=== PATIENT | female | born 1990 | race Caucasian/White ===

== ENCOUNTER 2021-07-07 20:13 | Emergency (ER) | payer MEDICARE, BC, SELFPAY ==
[2021-07-07 20:22] VITALS: BP 124/76; PULSE 97; RESP 18; TEMP 37.1; O2SAT 97; BMI 21.9
[2021-07-07 20:45] VITALS: BP 124/76; PULSE 97; RESP 18; TEMP 37.1; O2SAT 97; BMI 22.5
--- NOTE | 2021-07-07 21:00 | HMH.EDUTC ---
[facility] [place] Disposition Clinical Impression: Dental abscess Disposition: Home, Self-Care Condition on Discharge: Good Instructions: Tooth Abscess, Clindamycin Additional Instructions: *Monitor Temp, Over the counter Motrin or Tylenol as directed/as needed Tylenol every 4 hours and Motrin every 6 hours (as long as your family doctor has told you that you can take it) for fever or pain. and straight to ER if unable to lower temp less than 101.0 after medication given *Warm salt water gargles may help to soothe the throat Take medication as prescribed Follow up with Dentist as soon as possible Return if needed Straight to ER if any life threatening symptoms Follow up IMMEDIATELY for new or worsening symptoms or no Noticeable improvement over the next 48-72 hours. 911 for difficulty breathing or swallowing Prescriptions: clindamycin HCL [Clindamycin HCl] 300 mg PO TID 7 Days #21 cap Transmission Status: Pending to [facility]/pharmacy #[id number] Referrals: Vidal Guillermo [Primary Care Provider] - As needed Time of Disposition: 21:12 Medical Decision Making - Axel Inquiry Pt receiving controlled substance: No Axel was queried for this patient: No Vital Signs: 07/07/21 20:22 07/07/21 20:45 Temperature 98.7 F 98.7 F Temperature Source Oral Oral Pulse Rate [Right] 97 H 97 H Respiratory Rate 18 18 Blood Pressure [Right Arm] 124/76 124/76 Blood Pressure Mean [Right Arm] 92 92 02 Sat by Pulse Oximetry 97 97 Oxygen Delivery Method Room Air Medical Decision Narrative: Medication discussed with pharmacy to make sure that medication is safe for use during and pharmacy advised Clindamycin is safe for use during due to patient allergic to PCN and unsure if she can take Cephalosporins [facility] [place] HPI - General Stated complaint: poss abscess teeth/poss ear infection Time Seen by Provider: 07/07/21 21:01 Mode of Arrival: Ambulatory Source of Information: Patient Limitations: No Limitations Description of Symptoms (Recalled from Triage Doc. by RN): pt c/o upper tooth abcess and bilateral ear pain x 1 week HEENT Symptoms (Recalled from RN notes): Yes (toothache, ear pain) Resp Symptoms (Recalled from RN notes): No Skin Symptoms (Recalled from RN notes): No MS Symptoms (Recalled from RN notes): No Functional Status (Recalled from RN notes): n/a - History of Present Illness Provider Complaint: Pt states that she has several broken and decaying teeth state that she has been having some swelling in her gums and unable to get into see a dentist and noticed she was having some swelling today so she came in to see if she can get some antibiotics Statse that she is 5 1/2mth OB - Related Data Previous Rx's Medication Instructions Recorded azithromycin 250 mg tablet 250 mg PO .COMPLEX 5 Days #6 tab 08/29/18 clindamycin HCL [Clindamycin HCl] 300 mg PO TID 7 Days #21 cap 07/07/21 Allergies Allergy/AdvReac Type Severity Reaction Status Date / Time Penicillins Allergy Intermediate Verified 08/29/18 18:57 - Worker's Comp Is this a Worker's Comp case?: No [facility] History - Hepatitis A Screen Drug use history?: No High risk sexual behaviors?: No History of sexually transmitted infection?: No Currently employed?: No Childcare worker?: No Do you have indoor plumbing?: Yes Do you have electricity?: Yes Attestation statement:: This patient has been screened for Hepatitis A risk factors. I have reviewed the patient's past medical history: Yes Medical History: Reports:: Anxiety Other Surgeries: Yes: No Previous Surgery - Social History Smoking Status: Current every day smoker Alcohol Intake: never Alcohol Intake Frequency:: 0-2 drinks per day Substance Use Type: denies use Housing: house Household Members: family - Psychiatric History Pschychiatric History:: Reports:: Anxiety Family Hx:: No significant family history ROS Obtained: Yes All systems reviewed & no additional complaints, Yes Systems reviewed as
[2021-07-07 21:14] VITALS: BP 124/76; PULSE 97; RESP 18; TEMP 37.1; O2SAT 97
== END 2021-07-07 21:15 | disposition home or self-care (01) ==
PROVIDERS: Emergency Provider Nurse Practitioner; PCP Pediatrics
DX: K04.7 Periapical abscess without sinus (principal); F17.200 Nicotine dependence, unspecified, uncomplicated
CPT/HCPCS: G0463; 99202

== ENCOUNTER 2022-02-06 11:10 | Emergency (ER) | payer MEDICARE, BC, SELFPAY ==
[2022-02-06 11:55] VITALS: BP 128/89; PULSE 87; RESP 18; TEMP 37; O2SAT 98; BMI 20.7
--- NOTE | 2022-02-06 12:16 | HMH.EDUTC ---
[facility] [place] Disposition Clinical Impression: Dental abscess Otitis media Qualifiers: Otitis media type: unspecified Laterality: bilateral Qualified Code(s): H66.93 - Otitis media, unspecified, bilateral Disposition: Home, Self-Care Condition on Discharge: Good Instructions: Tooth Abscess, Middle Ear Infection, Cephalexin Additional Instructions: Take medication as prescribed Call today and make appointment with Dentist may take you several weeks to get into see the Doctor Return if needed Straight to ER if any life threatening symptoms FOllow up with Family Doctor if no improvement or any worsening of symptoms Prescriptions: cephALEXin [cephALEXin 500mg capsule*] 500 mg PO Q6H 10 Days #40 cap Transmission Status: Pending to [facility]/pharmacy #[id number] Referrals: Payton Vega APRN [Primary Care Provider] - As needed Time of Disposition: 12:32 Medical Decision Making - Axel Inquiry Pt receiving controlled substance: No Axel was queried for this patient: No Vital Signs: 02/06/22 11:55 Temperature 98.6 F Temperature Source Oral Pulse Rate [Right Brachial] 87 Respiratory Rate 18 Blood Pressure [Right Arm] 128/89 Blood Pressure Mean [Right Arm] 102 Blood Pressure Source [Right Arm] Automatic Cuff Blood Pressure Position [Right Arm] Sitting 02 Sat by Pulse Oximetry 98 Oxygen Delivery Method Room Air - Lab Data Lab results reviewed: Yes: I reviewed the patient's lab results. Medical Decision Narrative: Patient states that she was allergic to PCN as a child but has taken cephalexin in the past without complications or reactions [facility] [place] HPI - General Stated complaint: bilateral ear pain, sore throat Time Seen by Provider: 02/06/22 12:16 Mode of Arrival: Ambulatory Source of Information: Patient Limitations: No Limitations Description of Symptoms (Recalled from Triage Doc. by RN): PATIENT C/O BILATERAL EAR AND BOTTOM DENTAL PAIN X 2 WEEKS HEENT Symptoms (Recalled from RN notes): Yes Resp Symptoms (Recalled from RN notes): No Skin Symptoms (Recalled from RN notes): No MS Symptoms (Recalled from RN notes): No Functional Status (Recalled from RN notes): WNL - History of Present Illness Provider Complaint: Patient state that for the last couple of weeks she has been having bilateral ear pain and pain in her bottom teeth State that she has several broken and decaying teeth on the bottom and they are causing her some pain State that today she felt like her lymph nodes was swollen so she came in to get checked - Related Data Previous Rx's Medication Instructions Recorded azithromycin 250 mg tablet 250 mg PO .COMPLEX 5 Days #6 tab 08/29/18 clindamycin HCL [Clindamycin HCl] 300 mg PO TID 7 Days #21 cap 07/07/21 cephALEXin [cephALEXin 500mg 500 mg PO Q6H 10 Days #40 cap 02/06/22 capsule*] Allergies Allergy/AdvReac Type Severity Reaction Status Date / Time Penicillins Allergy Intermediate Verified 08/29/18 18:57 - Worker's Comp Is this a Worker's Comp case?: No [facility] History - Hepatitis A Screen Attestation statement:: This patient has been screened for Hepatitis A risk factors. I have reviewed the patient's past medical history: Yes Medical History: Reports:: Anxiety Other Surgeries: Yes: No Previous Surgery - Social History Smoking Status: Current every day smoker Alcohol Intake: never Alcohol Intake Frequency:: 0-2 drinks per day Substance Use Type: denies use Housing: house Household Members: family - Psychiatric History Pschychiatric History:: Reports:: Anxiety Family Hx:: No significant family history ROS Obtained: Yes All systems reviewed & no additional complaints, Yes Systems reviewed as appropriate & no additional complaints - Constitutional Constitutional: Reports system reviewed and no additional complaints, except as docu, Denies body ache, Denies chills, Denies fever(s) - ENT Ears, Nose, Mouth, and Throat: Reports system reviewed and no additional complaints, except as
[2022-02-06 12:33] LABS: UTC Pregnancy Test, Urine Negative (Negative)
[2022-02-06 12:45] VITALS: BP 128/89; PULSE 87; RESP 18; TEMP 37; O2SAT 98
== END 2022-02-06 12:48 | disposition home or self-care (01) ==
PROVIDERS: Emergency Provider Nurse Practitioner; PCP Nurse Practitioner
DX: K04.7 Periapical abscess without sinus (principal); H66.93 Otitis media, unspecified, bilateral; Z88.0 Allergy status to penicillin; F17.210 Nicotine dependence, cigarettes, uncomplicated
CPT/HCPCS: 81025; 99213; G0463

== ENCOUNTER 2022-04-01 20:13 | Emergency (ER) | payer MEDICARE, BC, SELFPAY ==
[2022-04-01 20:15] VITALS: BP 122/79; PULSE 99; RESP 16; TEMP 36.7; O2SAT 98; BMI 21.2
--- NOTE | 2022-04-01 20:47 | HMH.EDDENT ---
ED Disposition Clinical Impression: Pain, dental, Infected dental caries Disposition: Home, Self-Care Condition on Discharge: Good Instructions: DI for Dental Pain Additional Instructions: use meds and see dentist for follow up Prescriptions: clindamycin HCL [Clindamycin HCl] 300 mg PO TID #30 cap Transmission Status: Pending to [facility]/pharmacy #[id number] Referrals: Payton Vega APRN [Primary Care Provider] - - Critical Care Critical Care Time: No Attestation: On 04/01/22, the high probability of a clinically significant, sudden or life threatening deterioration of the following system(s) required my full and direct attention, intervention and personal management. The time I documented below is in addition to time spent performing reported procedures but includes the following listed in this critical care notation. Medical Decision Making - Medical Records Medical records reviewed: Yes: I reviewed the patient's medical records. - Axel Inquiry Pt receiving controlled substance: No Vital Signs: 04/01/22 20:15 Temperature 98.1 F Temperature Source Oral Pulse Rate [Right] 99 H Respiratory Rate 16 Blood Pressure [Right Arm] 122/79 Blood Pressure Mean [Right Arm] 93 02 Sat by Pulse Oximetry 98 Medical Decision Narrative: has dental pain and infection Dental HPI - General Chief complaint: Dental/Oral Stated complaint: right-side facial pain Time Seen by Provider: 04/01/22 20:30 Mode of Arrival: Ambulatory Source of Information: Patient, Medical Record Limitations: No Limitations Description of Symptoms (Recalled from ER Triage Doc. by RN): pt c/o rt face pain that radiates to rt ear x 4 days - History of Present Illness HPI Narrative: rt sided facial pain with rad to rt ear over the last 4 days Onset (ago): day(s) Duration: constant Severity: moderate Context: history of dental caries Treatment prior to arrival: none - Related Data Previous Rx's Medication Instructions Recorded clindamycin HCL [Clindamycin HCl] 300 mg PO TID #30 cap 04/01/22 Allergies Allergy/AdvReac Type Severity Reaction Status Date / Time Penicillins Allergy Intermediate Verified 08/29/18 18:57 [facility] History - Hepatitis A Screen Attestation statement:: This patient has been screened for Hepatitis A risk factors. I have reviewed the patient's past medical history: Yes Medical History: Reports:: Anxiety Other Surgeries: Yes: No Previous Surgery - Social History Smoking Status: Current every day smoker Alcohol Intake: never Alcohol Intake Frequency:: 0-2 drinks per day Substance Use Type: denies use Housing: house Household Members: family - Psychiatric History Pschychiatric History:: Reports:: Anxiety Family Hx:: No significant family history ROS Obtained: Yes All systems reviewed & no additional complaints - Constitutional Constitutional: Denies fever(s) - Eyes Eyes: Denies change in vision - ENT Ears, Nose, Mouth, and Throat: Reports as per HPI, Reports dental pain, Denies sore throat - Cardiovascular Cardiovascular: Denies chest pain - Respiratory Respiratory: Denies shortness of breath - Gastrointestinal Gastrointestingal: Denies: abdominal pain - Genitourinary Female Genitourinary: Denies abnormal vaginal bleeding - Musculoskeletal Musculoskeletal: Denies joint pain - Integumentary/Breasts Skin/Breast: Denies rash - Neurologic Neurologic: Denies seizure-like activity Physical Exam - General General appearance: alert - Head Head exam: normocephalic - Eye Eye exam: Present: PERRL, EOMI - ENT ENT exam: Present: mucous membranes moist, TM's normal bilaterally - Expanded ENT Exam Teeth exam: Present: dental caries, gingival swelling Throat exam: Absent: tonsillar exudate, R peritonsillar mass, L peritonsillar mass - Neck Neck exam: Present: trachea midline - Respiratory Respiratory exam: Absent: respiratory distress - Cardiovascular
[2022-04-01 20:55] VITALS: BP 119/73; PULSE 91; RESP 16; TEMP 36.7; O2SAT 98
== END 2022-04-01 20:58 | disposition home or self-care (01) ==
PROVIDERS: Emergency Provider Emergency Medicine; PCP Nurse Practitioner
DX: K08.9 Disorder of teeth and supporting structures, unspecified
CPT/HCPCS: 99212; G0463

== ENCOUNTER 2022-05-21 11:05 | Emergency (ER) | payer MEDICARE, BC, SELFPAY ==
[2022-05-21 11:06] VITALS: BP 130/75; PULSE 97; RESP 18; O2SAT 99; BMI 19.5
--- NOTE | 2022-05-21 11:25 | PC.NURSE ---
Pt given two warm blankets, hooked to monitor and call light within reach. Awaiting ER MD estes at this time
[2022-05-21 11:31] LABS: Microscopic, Urine URINE MICROSCOPIC (MICROSCOPIC)
[2022-05-21 11:32] LABS: Appearance,Urine TURBID (Clear); Bilirubin,Urine Negative (Negative); Blood, Urine 3+ (Negative); Color,Urine YELLOW (Yellow); Glucose,Urine (UA) Negative (Negative); Ketones,Urine Negative (Negative); Leukocyte Esterase,Urine 2+ (Negative); Nitrate,Urine POSITIVE (Negative); Protein,Urine 2+ (Negative); Specific Gravity, Urine 1.025 (1.005-1.030); Urobilinogen,Urine 0.2 EU/dl (0.2)
--- NOTE | 2022-05-21 11:32 | PC.NURSE ---
SHELBY RODRÍGUEZ at for patient eval
[2022-05-21 11:34] LABS: Urine Pregnancy, HCG Qual. Negative (Negative)
[2022-05-21 11:35] VITALS: BP 126/85; PULSE 90; O2SAT 98
--- NOTE | 2022-05-21 11:37 | HMH.EDGENADL ---
ED Disposition Clinical Impression: Pyelonephritis Disposition: Home, Self-Care Condition on Discharge: Good Additional Instructions: Take cefdinir as prescribed. Follow-up with your primary care provider within 72 hours to establish care for this visit to the emergency department and ensure no worsening of symptoms. Prescriptions: Cefdinir [Omnicef 300mg Capsule] 300 mg PO BID #20 cap Transmission Status: Received by [facility]/pharmacy #[id number] Referrals: Payton Vega APRN [Primary Care Provider] - - Critical Care Critical Care Time: No Attestation: On 05/21/22, the high probability of a clinically significant, sudden or life threatening deterioration of the following system(s) required my full and direct attention, intervention and personal management. The time I documented below is in addition to time spent performing reported procedures but includes the following listed in this critical care notation. Medical Decision Making - Axel Inquiry Pt receiving controlled substance: No Vital Signs: 05/21/22 11:06 05/21/22 11:35 05/21/22 12:00 Temperature Temperature Source Pulse Rate 90 88 Pulse Rate [Left Radial] 97 H Respiratory Rate 18 Blood Pressure 126/85 121/91 H Blood Pressure [Right Arm] 130/75 Blood Pressure Mean [Right Arm] 93 Blood Pressure Source Automatic Cuff Blood Pressure Source [Right Arm] Automatic Cuff Blood Pressure Position Sitting Blood Pressure Position [Right Arm] Sitting 02 Sat by Pulse Oximetry 99 98 100 Oxygen Delivery Method Room Air Room Air 05/21/22 12:46 Temperature 98.2 F Temperature Source Oral Pulse Rate 88 Pulse Rate [Left Radial] Respiratory Rate 18 Blood Pressure 121/91 H Blood Pressure [Right Arm] Blood Pressure Mean [Right Arm] Blood Pressure Source Automatic Cuff Blood Pressure Source [Right Arm] Blood Pressure Position Sitting Blood Pressure Position [Right Arm] 02 Sat by Pulse Oximetry Oxygen Delivery Method Room Air - Lab Data Lab Results 05/21/22 11:25: Urine Color Yellow, Urine Appearance Turbid, Urine pH 6.0, Ur Specific Reading 1.025, Urine Protein 2+, Urine Glucose (UA) Negative, Urine Ketones Negative, Urine Blood 3+, Urine Nitrate Positive, Urine Bilirubin Negative, Urine Urobilinogen 0.2, Ur Leukocyte Esterase 2+ A, Urine RBC Tntc, Urine WBC Tntc, Ur Squamous Epith Cells Occasional, Urine Bacteria 2+, Urine Mucus Trace 05/21/22 11:25: Urine HCG, Qual Negative Orders (Tests/Meds): ED MEDICATIONS Discontinued Medications Generic Name Dose Route Start Last Admin Trade Name Linda PRN Reason Stop Dose Admin Hydrocodone Bitart/Acetaminophen 1 tab 05/21/22 11:44 05/21/22 12:20 Hydrocodone/Apap 5/325 Mg Tablet PO 05/21/22 11:45 1 tab ONCE ONE Administration Cefdinir 300 mg 05/22/22 11:44 Cefdinir 300mg Capsule PO 05/22/22 11:45 ONCE ONE Cefdinir 300 mg 05/21/22 11:44 05/21/22 12:20 Cefdinir 300mg Capsule PO 05/21/22 11:45 300 mg ONCE ONE Administration ORDERS Category Date Time Status Urine Culture Stat Micro 05/21/22 11:25 Received Medical Decision Narrative: This is an otherwise healthy 31-year-old female presenting with flank pain, dysuria, hematuria. On arrival, patient hemodynamically stable, alert, oriented, moving all extremities spontaneously, pupils equal and reactive to light, GCS 15. Differential includes UTI, pyelonephritis, nephrolithiasis, , torsion, ruptured ovarian cyst, among others. Work-up significant for proteinuria, hematuria, nitrite positive turbid urine. Given patient's clinical work-up, physical exam, this most likely represents pyelonephritis versus nephrolithiasis. She was given 1 dose of cefdinir here in the emergency department given history of penicillin allergy without any concern for complicated reaction. Given this, she was deemed appropriate for discharge with 10 days of antibiotic and follow-up with her primary care prov
--- NOTE | 2022-05-21 11:38 | PC.NURSE ---
pt is refusing to have any blood work or IV at this time per MD
[2022-05-21 11:51] LABS: Bacteria,Urine 2+ /lpf; Mucus,Urine Trace /lpf; RBC,Urine TNTC #/hpf (0-3); Squamous Epithelial Cell,Urine Occasional #/hpf (0-5); WBC,Urine TNTC #/hpf (0-3)
[2022-05-21 12:00] VITALS: BP 121/91; PULSE 88; O2SAT 100
--- NOTE | 2022-05-21 12:22 | PC.NURSE ---
pt up to bathroom
[2022-05-21 12:46] VITALS: BP 121/91; PULSE 88; RESP 18; TEMP 36.8; O2SAT 100
== END 2022-05-21 12:48 | disposition home or self-care (01) ==
PROVIDERS: Emergency Provider Emergency Medicine; PCP Nurse Practitioner
DX: N10 Acute pyelonephritis (principal); B96.89 Other specified bacterial agents as the cause of diseases classified elsewhere
CPT/HCPCS: 81001; 81025; 87086; 87088; 87186; 99283

== ENCOUNTER 2022-08-01 10:06 | Emergency (ER) | payer MEDICARE, BC, SELFPAY ==
--- NOTE | 2022-08-01 11:17 | PC.NURSE ---
Pt coming back to the ER and had to wait in the waiting room as there was no rooms available in the ER. due to full capacity
[2022-08-01 11:25] VITALS: BP 146/101; PULSE 78; RESP 16; TEMP 36.9; O2SAT 98; BMI 20.7
[2022-08-01 11:29] VITALS: BP 146/101
--- NOTE | 2022-08-01 13:20 | PC.NURSE ---
rounded on pt. pt stated she was just waiting to see the doctor. asked her if she needed anything she said just need to see the Doctor i advised the pt i would let them know
--- NOTE | 2022-08-01 13:28 | PC.NURSE ---
SHELBY Rondon at
--- NOTE | 2022-08-01 13:40 | HMH.EDGENADL ---
Discharge Plan Disposition Patient Disposition: Home, Self-Care Condition: Good Prescriptions Prescriptions: New clindamycin HCl 300 mg capsule 300 mg PO QID Qty: 40 0RF No Action clindamycin HCl 300 MG capsule 300 mg PO TID Qty: 30 0RF cefdinir 300 MG capsule 300 mg PO BID Qty: 20 0RF Referrals Follow up/Referrals: Payton Vega APRN [Primary Care Provider] - See instructions Activity Restrictions/Add. Instructions Additional Instructions/Restrictions: Additional instructions for DENTAL PROBLEMS: Follow-up at [facility] oral surgery, call for appointment. Return immediately if you have an uncontrollable fever greater than 102 degrees, difficulty breathing or shortness of breath, persistent vomiting, or inability to swallow. [facility] oral surgery: [address] [place] [address] Phone: Oral and Maxillofacial Resident Clinic:?[phone] Clinical Impressions Clinical Impression: Dental caries Discharge ED Provider: Dinesh Borjas General Adult HPI General Chief complaint: Dental/Oral Stated complaint: Severe tooth pain Time Seen by Provider: 08/01/22 13:26 Mode of Arrival: Ambulatory Source of Information: Patient Limitations: No Limitations Description of Symptoms (Recalled from ER Triage Doc. by RN): pt presents to ED to requesting a referral to dental clinic at , states she is wanting to get her teeth pulled. Pt reports has pain with her teeth frequently. History of Present Illness HPI narrative: Patient states that she has had problems with her teeth for at least 6 months. She has decay of numerous teeth. She thinks she needs them all pulled. Those that currently her mandibular molars bilaterally feel like the nerves are jumping . She says she just wants an antibiotic and a referral to [facility] oral surgery clinic. She has an allergy to penicillins which cause a rash. States she has been seen here previously for 2 problems, thinks that she was started on clindamycin. Related Data Previous Rx's Medication Instructions Recorded clindamycin HCl 300 mg capsule 300 mg PO TID #30 caps 04/01/22 cefdinir 300 mg capsule 300 mg PO BID #20 caps 05/21/22 clindamycin HCl 300 mg capsule 300 mg PO QID #40 caps 08/01/22 Allergies Allergy/AdvReac Type Severity Reaction Status Date / Time Penicillins Allergy Intermediate Verified 08/29/18 18:57 [facility] Social History Smoking Status: Current every day smoker alcohol intake: never substance use type: denies use household members: family housing: house ROS Obtained: Yes Systems reviewed as appropriate & no additional complaints except as documented Constitutional Constitutional: Denies fever(s) ENT Ears, Nose, Mouth, and Throat: Reports dental pain, Denies dysphagia, Denies facial pain, Denies lip swelling, Denies throat swelling and Denies tongue swelling Gastrointestinal Gastrointestingal: Denies dysphagia Allergic/Immunologic Allergic/Immunologic: Denies lip swelling, Denies throat swelling and Denies tongue swelling Physical Exam General General appearance: alert and in no apparent distress Expanded ENT Exam Comment: Severe decay primarily involving all molars, maxillary and mandibular. Also anteriors maxillary and mandibular. No gingival erythema or edema. No fluctuance or drainage. No visible abscess. No elevation of the tongue. No sublingual swelling. No facial swelling. No neck swelling. No trismus, stridor, or drooling. Chest Chest inspection: Present normal inspection and symmetric chest wall rise Respiratory Respiratory exam: Absent respiratory distress or stridor Cardiovascular Cardiovascular exam: Present regular rate Neurological Exam Neurological exam: Present alert and oriented X3 Psychiatric Psychiatric exam: Present normal affect and normal mood Skin Skin exam: Present warm and dry [facility]
[2022-08-01 13:53] VITALS: BP 126/92; PULSE 85; RESP 16; TEMP 36.9; O2SAT 98
== END 2022-08-01 13:53 | disposition home or self-care (01) ==
PROVIDERS: Emergency Provider Emergency Medicine; PCP Nurse Practitioner
DX: K02.9 Dental caries, unspecified (principal); Z88.0 Allergy status to penicillin; Z72.0 Tobacco use
CPT/HCPCS: 99212; 99283; G0463

== ENCOUNTER 2022-12-30 12:23 | Emergency (ER) | payer MEDICARE, BC, SELFPAY ==
[2022-12-30 12:40] VITALS: BP 113/83; PULSE 118; RESP 22; TEMP 36.9; O2SAT 98; BMI 19.8
--- NOTE | 2022-12-30 13:26 | EXP.UTC ---
Discharge Plan Disposition Patient Disposition: Home, Self-Care Condition: Good Prescriptions Prescriptions: New azithromycin [azithromycin] 250 mg tablet 250 mg PO DIRECTED Qty: 6 0RF Rx Instructions: Take two (2) tablets on day #1, then one (1) tablet day #2 thru #5 No Action carbamazepine 200 mg tablet extended release 12 hr 200 mg PO BID medroxyprogesterone 150 mg/mL suspension 150 mg IM ONCE Label Comments: INJECT 1 ML INTO THE MUSCLE ONCE FOR 1 DOSE naproxen 500 mg tablet 500 mg PO BID Referrals Follow up/Referrals: Payton Vega APRN [Primary Care Provider] - See instructions Activity Restrictions/Add. Instructions Additional Instructions/Restrictions: Start antibiotics today be sure to take it as ordered with the full length of time although you should start feeling better in 24-48 hours. Change toothbrush and toothpaste 24-48 hours after starting antibiotics Tylenol or Motrin as needed for fever or pain Encourage fluids, water, Gatorade, Powerade, try cold fluids, popsicles, ice cream will make it feel better You are contagious for 24 hours. Avoid kissing anyone, no eating or drinking after anyone. You are contagious. Follow-up the ER for new or worsening symptoms or no noticeable improvement over the next 24-48 hours. Follow-up with PCP this week. Clinical Impressions Clinical Impression: Strep sore throat Instructions Patient Instructions: DI for Strep Throat Discharge ED Provider: Emiliana ([facility] [place] HPI General Stated complaint: sharp pain left side of face, headache Mode of Arrival: Ambulatory Source of Information: Patient Limitations: No Limitations Time Seen by Provider: 12/30/22 13:26 Description of Symptoms (Recalled from Triage Doc. by RN): PATIENT C/O LEFT FACE, LEFT EAR, AND LEFT HEAD PAIN THAT HAS BEEN GOING ON FOR APPROX 2 MONTHS HEENT Symptoms (Recalled from RN notes): Yes Resp Symptoms (Recalled from RN notes): No Skin Symptoms (Recalled from RN notes): No MS Symptoms (Recalled from RN notes): No Functional Status (Recalled from RN notes): WNL History of Present Illness Provider Complaint: 32 yr old female presents for left ear pain, throat pain,PHILLIPS, face pain and teeth pain. pt states she has been having phillips for a few months but over the last couple days the pain started in her face, teeth and ear. Related Data Home Medications Medication Instructions Recorded Confirmed carbamazepine 200 mg 200 mg PO BID Headache 12/30/22 12/30/22 tablet,extended release,12 hr medroxyprogesterone 150 mg/mL 150 mg IM ONCE control 12/30/22 12/30/22 intramuscular suspension naproxen 500 mg tablet 500 mg PO BID Headache 12/30/22 12/30/22 Previous Rx's Medication Instructions Recorded azithromycin 250 mg tablet 250 mg PO DIRECTED #6 tabs 12/30/22 Allergies Allergy/AdvReac Type Severity Reaction Status Date / Time Penicillins Allergy Intermediate Verified 08/29/18 18:57 Worker's Comp Is this a Worker's Comp case?: No [facility] Disclaimer: The information contained in this section may have been updated after the patient was seen, as this information can be updated by other users. Social History , [employer]) Smoking Status: Current every day smoker alcohol intake: never substance use type: denies use current occupational status: other Travel in the last 8 weeks: None household members: family housing: house ROS Obtained: Yes All systems reviewed & no additional complaints except as documented Constitutional Constitutional: Reports system reviewed and no additional complaints, except as documented, Reports as per HPI and Reports headache(s) Eyes Eyes: Reports system reviewed and no additional complaints, except as documented ENT Ears, Nose, Mouth, and Throat: Reports system reviewed and no additional complaints, except as documented, Reports as per HPI,
[2022-12-30 14:16] VITALS: BP 113/83; PULSE 118; RESP 22; TEMP 36.9; O2SAT 98
[2022-12-30 20:31] LABS: UTC Strep Screen (Rapid) Negative (Negative)
== END 2022-12-30 14:20 | disposition home or self-care (01) ==
PROVIDERS: Emergency Provider Nurse Practitioner Family; PCP Nurse Practitioner
DX: G50.1 Atypical facial pain (principal); J02.9 Acute pharyngitis, unspecified; H92.02 Otalgia, left ear
CPT/HCPCS: 87880; 99212; 99214; G0463

== ENCOUNTER 2023-02-07 17:09 | Emergency (ER) | payer MEDICARE, BC, SELFPAY ==
--- NOTE | 2023-02-07 17:36 | EXP.UTC ---
Discharge Plan Disposition Patient Disposition: Home, Self-Care Condition: Good Prescriptions Prescriptions: New clindamycin HCl 300 mg capsule 300 mg PO Q8H Qty: 30 0RF No Action carbamazepine 200 mg tablet extended release 12 hr 200 mg PO BID medroxyprogesterone 150 mg/mL suspension 150 mg IM ONCE Label Comments: INJECT 1 ML INTO THE MUSCLE ONCE FOR 1 DOSE naproxen 500 mg tablet 500 mg PO BID azithromycin [azithromycin] 250 mg tablet 250 mg PO DIRECTED Qty: 6 0RF Rx Instructions: Take two (2) tablets on day #1, then one (1) tablet day #2 thru #5 Referrals Follow up/Referrals: Payton Vega APRN [Primary Care Provider] - See instructions Activity Restrictions/Add. Instructions Additional Instructions/Restrictions: Take tylenol or ibuprofen for pain or fever. Take the medications as directed. Follow up with your dentist as scheduled. GO TO THE ER FOR ANY WORSENING SYMPTOMS Clinical Impressions Clinical Impression: Dental abscess Instructions Patient Instructions: Tooth Abscess, DI for Tooth Abscess Discharge ED Provider: Vishal Chu [facility] General Stated complaint: Dental pain Time Seen by Provider: 02/07/23 17:36 History of Present Illness Provider Complaint: She has had worsening left lower jaw dental pain for the past 1 week. She has swelling around her teeth in that area of her mouth. She denies fever, but she has had chills. She has a dental appt tomorrow, but she was told to come here to get put on antibiotics first. Related Data Home Medications Medication Instructions Recorded Confirmed carbamazepine 200 mg 200 mg PO BID Headache 12/30/22 12/30/22 tablet,extended release,12 hr medroxyprogesterone 150 mg/mL 150 mg IM ONCE control 12/30/22 12/30/22 intramuscular suspension naproxen 500 mg tablet 500 mg PO BID Headache 12/30/22 12/30/22 Previous Rx's Medication Instructions Recorded azithromycin 250 mg tablet 250 mg PO DIRECTED #6 tabs 12/30/22 clindamycin HCl 300 mg capsule 300 mg PO Q8H #30 caps 02/07/23 Allergies Allergy/AdvReac Type Severity Reaction Status Date / Time Penicillins Allergy Intermediate Verified 02/07/23 17:43 [facility] Disclaimer: The information contained in this section may have been updated after the patient was seen, as this information can be updated by other users. Social History Smoking Status: Current every day smoker alcohol intake: never substance use type: denies use current occupational status: other Travel in the last 8 weeks: None household members: family housing: house ROS Obtained: Yes All systems reviewed & no additional complaints except as documented Constitutional Constitutional: Denies chills and Denies fever(s) Eyes Eyes: Denies eye discharge ENT Ears, Nose, Mouth, and Throat: Reports as per HPI, Denies dizziness, Denies otalgia and Denies sore throat Cardiovascular Cardiovascular: Denies chest pain Respiratory Respiratory: Denies shortness of breath, Denies chest congestion, Denies cough, Denies stridor and Denies wheezing Gastrointestinal Gastrointestingal: Denies nausea or vomiting Musculoskeletal Musculoskeletal: Reports system reviewed and no additional complaints, except as documented and Denies arthralgias Integumentary/Breasts Skin/Breast: Denies rash Neurologic Neurologic: Denies dizziness and Denies paresthesias Allergic/Immunologic Allergic/Immunologic: Denies wheezing Physical Exam General General appearance: alert and in no apparent distress Head Head exam: atraumatic, normocephalic and normal inspection Eye Eye exam: Present normal appearance, PERRL and EOMI ENT ENT exam: Present normal oropharynx, mucous membranes moist, TM's normal bilaterally and normal external ear exam Expanded ENT Exam Nose exam: Absent sinus tenderness Nasal speculum exam: Bilateral:
[2023-02-07 17:40] VITALS: BP 143/103; PULSE 106; RESP 20; TEMP 36.8; O2SAT 100; BMI 21.2
[2023-02-07 18:18] VITALS: BP 143/103; PULSE 106; RESP 20; TEMP 36.8
== END 2023-02-07 18:20 | disposition home or self-care (01) ==
PROVIDERS: Emergency Provider Nurse Practitioner Family; PCP Nurse Practitioner
DX: K04.7 Periapical abscess without sinus (principal); R68.83 Chills (without fever); F17.210 Nicotine dependence, cigarettes, uncomplicated
CPT/HCPCS: 99212; 99214; G0463

== ENCOUNTER 2023-10-10 15:04 | Emergency (ER) | payer MEDICARE, BC, SELFPAY ==
[2023-10-10 15:40] VITALS: BP 130/86; PULSE 101; RESP 18; TEMP 37.8; O2SAT 100; BMI 21.6
--- NOTE | 2023-10-10 16:00 | ED_ITS ---
Discharge Plan Disposition Patient Disposition: Home, Self-Care Condition: Good Prescriptions Prescriptions: New azithromycin [Zithromax Z-Venkatesh] 250 mg tablet See Rx Instructions .ROUTE .COMPLEX 5 Days Qty: 6 0RF Rx Instructions: For 250 mg dose pack: take 500 mg today (day 1), then 250 mg for 4 days (days 2-5) No Action medroxyprogesterone 150 mg/mL suspension 150 mg IM ONCE Patient Comments: INJECT 1 ML INTO THE MUSCLE ONCE FOR 1 DOSE Referrals Follow up/Referrals: Payton Veag APRN [Primary Care Provider] - See instructions Activity Restrictions/Add. Instructions Additional Instructions/Restrictions: *Monitor Temp, Over the counter Motrin or Tylenol as directed/as needed Tylenol every 4 hours and Motrin every 6 hours (as long as your family doctor has told you that you can take it) for fever or pain. and straight to ER if unable to lower temp less than 101.0 after medication given *Warm salt water gargles may help to soothe the throat *Throat Lozenges? *Warm fluids like tea with honey may help to soothe the throat? *Sleep elevated *Humidifier/Vaporizer *If you did not take Penicillin shot or was unable to, start taking antibiotic immediately and make sure that you take it for the FULL length of time although you should start to feel better in 24-48 hours *change toothbrush and toothpaste 24-48 hours after starting to take antibiotics so you do not reinfect yourself Monitor Temp. Tylenol and/or Ibuprofen as needed. ER if fever is no less than 101 despite alternating Tylenol and Ibuprofen * Encourage fluids, water, Gatorade, powerade, pedialyte if infant/toddler/or child *Cold fluids, popsicles and ice cream may feel good on his throat Follow up IMMEDIATELY for new or worsening symptoms or no Noticeable improvement over the next 48-72 hours. 911 for difficulty breathing or swallowing Clinical Impressions Clinical Impression: Strep sore throat Instructions Patient Instructions: DI for Strep Throat, Strep Throat Discharge ED Provider: Sharyn Maravilla [facility] [place] General Stated complaint: sore throat, ear ache Mode of Arrival: Ambulatory Source of Information: Patient Limitations: No Limitations Time Seen by Provider: 10/10/23 16:00 Description of Symptoms (Recalled from Triage Doc. by RN): Pt was exposed to strep. Pt's symptoms are bilateral ear pain, sore throat, PHILLIPS, and body aches. HEENT Symptoms (Recalled from RN notes): Yes Resp Symptoms (Recalled from RN notes): No Skin Symptoms (Recalled from RN notes): No MS Symptoms (Recalled from RN notes): No Functional Status (Recalled from RN notes): n/a History of Present Illness Provider Complaint: Patient states that her son has strep throat and she has been having sore throat, swollen tonsils, and pain in both ears States that today she noticed blister like areas on her tonsils so she came in to get it checked Related Data Home Medications Medication Instructions Recorded Confirmed medroxyprogesterone 150 mg/mL 150 mg IM ONCE control 12/30/22 10/10/23 intramuscular suspension Previous Rx's Medication Instructions Recorded azithromycin 250 mg tablet See Rx Instructions PO .COMPLEX 5 10/10/23 (Zithromax Z-Venkatesh) days #6 tabs Allergies Allergy/AdvReac Type Severity Reaction Status Date / Time Penicillins Allergy Intermediate Verified 10/10/23 15:57 Worker's Comp Is this a Worker's Comp case?: No [facility] Disclaimer: The information contained in this section may have been updated after the patient was seen, as this information can be updated by other users. Social History Smoking Status: Current every day smoker alcohol intake: never substance use type: denies use current occupational status: other Travel in the last 8 weeks: None household members: family housing: house ROS Obtained: Yes All systems reviewed & no additional complaints except as documented and Yes Systems reviewed as appropriate & no additional complaints except as documented Constitutional Constitutional: Reports system reviewed and no additional complaints, except as documented, Reports as per HPI and Reports headache(s) ENT Ears, Nose, Mouth, and Throat: Reports system reviewed and no additional complaints, except as documented, Reports as per HPI, Reports otalgia, Reports headache(s) and Reports sore throat Cardiovascular Cardiovascular: Reports system reviewed and no additional complaints, except as documented and Reports as per HPI Respiratory Respiratory: Reports system reviewed and no additional complaints, except as documented and Reports as per HPI Gastrointestinal Gastrointestingal: Reports system reviewed and no additional complaints, except as documented and as per HPI Neurologic Neurologic: Reports headache(s) Physical Exam General General appearance: alert and in no apparent distress ENT ENT exam: Present mucous membranes moist Expanded ENT Exam TM/Canal exam: Left TM: erythema and Bilateral TM: bulging Throat exam: Present tonsillar erythema and tonsillar exudate Respiratory Respiratory exam: Present normal lung sounds bilaterally; Absent respiratory distress or wheezes Cardiovascular Cardiovascular exam: Present regular rate, normal rhythm and tachycardia Neurological Exam Neurological exam: Present alert, oriented X3 and normal gait Medical Decision Making Axel Inquiry Pt receiving controlled substance: No Axel was queried for this patient: No Vital Signs: 10/10/23 15:40 Temperature 100.0 F H Temperature Source Oral Pulse Rate [Right Radial] 101 H Respiratory Rate 18 Blood Pressure [Right Arm] 130/86 Blood Pressure Mean [Right Arm] 100 Blood Pressure Source [Right Arm] Automatic Cuff Blood Pressure Position [Right Arm] Sitting 02 Sat by Pulse Oximetry 100 Oxygen Delivery Method Room Air Lab Data Lab results reviewed: Yes I reviewed the patient's lab results.
[2023-10-10 16:08] LABS: UTC Strep Screen (Rapid) Positive (Negative)
[2023-10-10 16:30] VITALS: BP 130/86; PULSE 21; RESP 18; TEMP 37.8; O2SAT 100
== END 2023-10-10 16:30 | disposition home or self-care (01) ==
PROVIDERS: Emergency Provider Nurse Practitioner; PCP Nurse Practitioner
DX: J02.0 Streptococcal pharyngitis; R07.0 Pain in throat; R51.9 Headache, unspecified; H92.03 Otalgia, bilateral; M79.18 Myalgia, other site; F17.210 Nicotine dependence, cigarettes, uncomplicated
CPT/HCPCS: 87880; 99212; 99214; G0463